=== PATIENT | female | born 1955 | race Caucasian/White ===

== ENCOUNTER 2018-11-30 15:51 | Outpatient (CLI) | payer BC ==
[~2018-11-30] VITALS: Ht 160 cm; Wt 56.8 kg
[2018-11-30] MEDS ORDERED: TEMA15CA PO (15:55)
[2018-11-30] MEDS ORDERED: FLUO20TA28 PO (15:55)
[2018-11-30] MEDS ORDERED: ALPR0.5T7 PO (15:55)
[2018-11-30] MEDS ORDERED: AMLO10TA7 PO (15:55)
[2018-11-30] MEDS ORDERED: TRAM50TA2 PO (15:55)
[2018-11-30] MEDS ORDERED: MELO15TA39 PO (15:55)
== END 2018-11-30 15:58 | disposition home or self-care (01) ==
LOC: PREOP 15:51
PROVIDERS: ATTEND Specialist
DX: Z01.818 Encounter for other preprocedural examination (principal)

== ENCOUNTER 2018-12-06 08:50 | Day surgery (SDC) | payer BC ==
[~2018-12-06] VITALS: Ht 160 cm; Wt 56.8 kg
[~2018-12-06 08:50] MED LIST: ALPR0.5T7 PO; AMLO10TA7 PO; FLUO20TA28 PO; MELO15TA39 PO; TEMA15CA PO; TRAM50TA2 PO
[2018-12-06] MEDS ORDERED: POVIDONE (BETADINE) OPHTH SOLN 5% 30 ML OP ONE (10:00)
[2018-12-06] MEDS ORDERED: MOXIFLOXACIN OPHTH SOLN 5 MG/ML 0.3 ML SYRINGE OP ONE (10:00)
[2018-12-06] MEDS ORDERED: LIDOCAINE PF 1% 2 ML AMP IR PRN (10:00)
[2018-12-06] MEDS ORDERED: TIMOLOL MALEATE 0.5% 5 ML (TIMOPTIC) BTL OU PRN (10:00)
[2018-12-06] MEDS: TETRACAINE 0.5% OPHTH SOLN 4 ML BTL (SINGLE DOSE ONLY) OU PRN ×4 (10:00→10:18)
[2018-12-06] MEDS: CYCLOPENTOLATE 1% (CYCLOGYL) 2 ML DROPS OP SCH ×3 (10:06→10:18)
[2018-12-06] MEDS: PHENYLEPHRINE 10% OPHTH (NEO-SYN) 5 ML BTL OU SCH ×4 (10:06→10:18)
[2018-12-06 10:09] VITALS: BP 145/69
[2018-12-06] MEDS ORDERED: MIDAZOLAM 2 MG/2 ML (VERSED) VIAL ONE (10:54)
[2018-12-06] MEDS ORDERED: acetaZOLAMIDE ER 500 MG CAP (DIAMOX SEQUELS) PO ONE (11:00)
--- NOTE | 2018-12-06 11:04 | Ophthalmologist Pre-Op Note ---
Pre-Operative Progress Note H&P Reviewed The H&P was reviewed, patient examined and no changes noted. Date H&P Reviewed: Dec 06, 2018 Time H&P Reviewed: 11:03 Pre-Op Dx Secondary Cataract, Right Eye DAMIÁN VIRGEN MD Dec 06, 2018 11:03 POS
--- NOTE | 2018-12-06 11:31 | Ophthalmology Operative Report ---
Cataract removal/placement IOL PREOPERATIVE DIAGNOSIS: Cataract Left Eye POSTOPERATIVE DIAGNOSIS: Cataract Left Eye PROCEDURE: Cataract removal and placement of posterior chamber implant, left eye SURGEON: Julian Virgen ANESTHESIA: Topical with sedation COMPLICATIONS: None ESTIMATED BLOOD LOSS: Minimal DESCRIPTION OF PROCEDURE: After proper informed consent was obtained, the patient, a 63 female, was taken to the Operating Room and the left eye was anesthetized with tetracaine. The left eye was then prepped and draped in the usual manner. A wire lid speculum was placed. A paracentesis was made at the left hand position. Preservative free lidocaine was injected into the anterior chamber followed by viscoelastic. A clear corneal incision was made in the temporal position. A capsulorrhexis was preformed and the central nuclear and cortical material were removed. The posterior capsule was polished and an Jairo 11.5 [id number] was placed into the capsular bag. The residual viscoelastic was aspirated and balanced saline solution was injected into the anterior chamber. Moxifloxacin was injected into the anterior chamber. The wound was checked and found to be water tight. The patient tolerated the procedure well without complications. JULIAN VIRGEN MD Dec 06, 2018 11:31 POS
--- NOTE | 2018-12-06 11:32 | Ophthalmologist Pre-Op Note ---
Pre-Operative Progress Note H&P Reviewed The H&P was reviewed, patient examined and no changes noted. Date H&P Reviewed: Dec 06, 2018 Time H&P Reviewed: 10:59 Pre-Op Dx Cataract, Left Eye DAMIÁN VIRGEN MD Dec 06, 2018 11:31 POS
[2018-12-06 11:35] VITALS: BP 134/67
--- NOTE | 2018-12-06 13:02 | Anesthesia-General Post-Op ---
MAC Patient Condition Mental Status/LOC: Same as Preop Cardiovascular: Satisfactory Nausea/Vomiting: Absent Respiratory: Satisfactory Pain: Controlled Complications: Absent Post Op Complications Complications None Follow Up Care/Instructions Patient Instructions None needed. Anesthesiology Discharge Order Discharge Order Patient is doing well, no complaints, stable vital signs, no apparent adverse anesthesia problems. No complications reported per nursing. HARSHIL CISNEROS CRNA Dec 06, 2018 13:02 POS
== END 2018-12-06 11:35 | disposition home or self-care (01) ==
LOC: SDC 08:50
PROVIDERS: ATTEND Specialist
DX: H25.12 Age-related nuclear cataract, left eye (principal); F17.200 Nicotine dependence, unspecified, uncomplicated; F41.9 Anxiety disorder, unspecified; Z79.899 Other long term (current) drug therapy; Z83.518 Family history of other specified eye disorder; Z80.9 Family history of malignant neoplasm, unspecified

== ENCOUNTER 2021-07-02 07:01 | Outpatient (CLI) | payer BC, MEDICARE ==
[~2021-07-02] VITALS: Ht 160 cm; Wt 56.8 kg
[~2021-07-02 07:01] MED LIST changes: +AMLO-251 PO; -AMLO10TA7 PO; -TRAM50TA2 PO; +TRM50T PO
== END 2022-06-09 17:02 | disposition home or self-care (01) ==
LOC: PREOP 07:01
PROVIDERS: ATTEND Specialist
DX: Z01.818 Encounter for other preprocedural examination (principal)

== ENCOUNTER 2021-07-10 08:09 | Day surgery (SDC) | payer MEDICARE ==
[~2021-07-10] VITALS: Ht 160 cm; Wt 56.8 kg
[2021-07-10] MEDS: TETRACAINE 0.5% OPHTH SOLN 4 ML BTL (SINGLE DOSE ONLY) OU PRN ×3 (08:25→08:31)
[2021-07-10 08:29] VITALS: BP 145/67
[2021-07-10] MEDS ORDERED: PHENYLEPHRINE 10% OPHTH (NEO-SYN) 5 ML BTL OU PRN (08:30)
[2021-07-10] MEDS ORDERED: TROPICAMIDE 1% OPH SOLN (MYDRIACYL) 15 ML BTL OU PRN (08:30)
--- NOTE | 2021-07-10 09:41 | Ophthalmologist Pre-Op Note ---
Pre-Operative Progress Note H&P Reviewed The H&P was reviewed, patient examined and no changes noted. Date H&P Reviewed: Jul 10, 2021 Time H&P Reviewed: 10:11 Pre-Op Dx Secondary Cataract, Right Eye DAMIÁN VIRGEN MD Jul 10, 2021 09:41
--- NOTE | 2021-07-10 09:42 | Ophthalmology Operative Report ---
YAG Capsulotomy PREOPERATIVE DIAGNOSIS: Secondary Cataract Left Eye POSTOPERATIVE DIAGNOSIS: Secondary Cataract Left Eye PROCEDURE: YAG Capsulotomy, left eye SURGEON: Julian Virgen ANESTHESIA: Topical anesthesia COMPLICATIONS: None ESTIMATED BLOOD LOSS: Minimal DESCRIPTION OF PROCEDURE: After proper informed consent was obtained, the patient's, a 65 female left eye received one drop of Tropicamide and one drop of Tetracaine. The patient was then placed at the YAG laser and using a power of [ 4.1] millijoules and [ 19] bursts were used to fashion a central capsulotomy. The patient tolerated the procedure well without complications. JULIAN VIRGEN MD Jul 10, 2021 09:42
== END 2021-07-10 09:25 | disposition home or self-care (01) ==
LOC: SDC 08:09
PROVIDERS: ATTEND Specialist
DX: H26.40 Unspecified secondary cataract (principal); F17.290 Nicotine dependence, other tobacco product, uncomplicated